=== PATIENT | male | born 1995 | race African-American/Black ===

== ENCOUNTER 2018-11-22 11:48 | Emergency (ER) | payer OTHER ==
[~2018-11-22] VITALS: Ht 185.4 cm; Wt 90.7 kg
[~2018-11-22 11:48] MED LIST: NAPROSYN500 MG PO; NORFLEX100 MG PO; ULTRAM 50MG TAB50 MG PO
[2018-11-22 11:49] VITALS: BP 132/75
[2018-11-22] MEDS ORDERED: MOBIC7.5 MG PO (12:36)
== END 2018-11-22 12:55 | disposition home or self-care (01) ==
LOC: ER 11:48
DX: M79.642 Pain in left hand (principal); J45.909 Unspecified asthma, uncomplicated; Y04.0XXA Assault by unarmed brawl or fight, initial encounter; Y93.89 Activity, other specified; Y92.89 Other specified places as the place of occurrence of the external cause; Y99.8 Other external cause status

== ENCOUNTER 2019-01-30 12:35 | Emergency (ER) | payer OTHER ==
[~2019-01-30] VITALS: Ht 180.3 cm; Wt 79.8 kg
[~2019-01-30 12:35] MED LIST changes: +MOBIC7.5 MG PO
[2019-01-30] MEDS ORDERED: CYCLOBENZAPRINE5 MG PO (13:32)
[2019-01-30] MEDS ORDERED: MOBIC7.5 MG PO (13:32)
[2019-01-30] MEDS ORDERED: NORCO 5-325 TA1 EACH PO (13:57)
[2019-01-30 14:00] VITALS: BP 112/68
== END 2019-01-30 14:04 | disposition home or self-care (01) ==
LOC: ER 12:35
DX: S16.1XXA Strain of muscle, fascia and tendon at neck level, initial encounter (principal); S39.012A Strain of muscle, fascia and tendon of lower back, initial encounter; J45.909 Unspecified asthma, uncomplicated; V89.2XXA Person injured in unspecified motor-vehicle accident, traffic, initial encounter; Y93.89 Activity, other specified; Y92.89 Other specified places as the place of occurrence of the external cause; Y99.8 Other external cause status

== ENCOUNTER 2019-02-08 12:38 | Emergency (ER) | payer OTHER ==
[~2019-02-08] VITALS: Ht 182.9 cm; Wt 86.2 kg
[~2019-02-08 12:38] MED LIST changes: +CYCLOBENZAPRINE5 MG PO; +NORCO 5-325 TA1 EACH PO
[2019-02-08 12:55] LABS: ABSOLUTE NEUTROPHILS 6.8 thou/uL (1.4-8.2); BASOPHILS 0.7 % (0.0-2.0); EOSINOPHILS 5.3 % (0.0-3.0); HEMATOCRIT 45.5 % (42.0-52.0); HEMOGLOBIN 15.8 gm/dL (14.0-18.0); LYMPHOCYTES 19.7 % (24.0-44.0); MCH 31.8 pg (26.0-34.0); MCHC 34.6 g/dL (28.0-37.0); MCV 91.9 fL (80.0-100.0); MONOCYTES 5.6 % (1.0-8.0); PLATELET COUNT 176 thou/uL (150-400); POLYS 68.7 % (36.0-66.0); RBC 4.95 mil/uL (4.50-6.00); RDW 13.1 % (10.5-14.5); WBC 9.9 thou/uL (4.0-11.0)
[2019-02-08 13:07] LABS: CALCIUM 9.9 mg/dL (8.5-10.1); POTASSIUM 3.9 mmol/L (3.5-5.1)
[2019-02-08 13:13] LABS: ALBUMIN 4.4 g/dL (3.4-5.0); TOTAL PROTEIN 8.3 g/dL (6.4-8.2)
[2019-02-08 13:38] VITALS: BP 116/54
[2019-02-08] MEDS ORDERED: NORCO 10-325 T1 EACH PO (14:35)
== END 2019-02-08 14:48 | disposition home or self-care (01) ==
LOC: ER 12:38
PROVIDERS: Physician Assistant
DX: M54.5 Low back pain (principal); F17.210 Nicotine dependence, cigarettes, uncomplicated; J45.909 Unspecified asthma, uncomplicated

== ENCOUNTER 2019-04-06 11:22 | Emergency (ER) | payer OTHER ==
[~2019-04-06] VITALS: Ht 182.9 cm; Wt 86.2 kg
[~2019-04-06 11:22] MED LIST changes: +NORCO 10-325 T1 EACH PO
[2019-04-06] MEDS ORDERED: CYCLOBENZAPRINE5 MG PO (12:26)
[2019-04-06] MEDS ORDERED: MOBIC15 MG PO (12:26)
[2019-04-06 12:31] VITALS: BP 115/74
== END 2019-04-06 12:29 | disposition home or self-care (01) ==
LOC: ER 11:22
DX: S86.911A Strain of unspecified muscle(s) and tendon(s) at lower leg level, right leg, initial encounter (principal); J45.909 Unspecified asthma, uncomplicated; F17.210 Nicotine dependence, cigarettes, uncomplicated; V43.52XA Car driver injured in collision with other type car in traffic accident, initial encounter; Y93.I9 Activity, other involving external motion; Y92.410 Unspecified street and highway as the place of occurrence of the external cause; Y99.8 Other external cause status